=== PATIENT | female | born 1975 | race African-American/Black ===

== ENCOUNTER 2021-05-23 11:28 | Outpatient (REF) | payer OTHER, SELFPAY ==
[2021-05-27 22:02] LABS: HPV mRNA E6/E7 rflx Not Detected (Not Detected)
== END 2021-05-23 11:29 | disposition home or self-care (01) ==
LOC: HO.LAB 11:28
PROVIDERS: PCP Internal Medicine; Visit Provider Advanced Practice Midwife
DX: Z01.411 Encounter for gynecological examination (general) (routine) with abnormal findings (principal); Z11.51 Encounter for screening for human papillomavirus (HPV); N92.0 Excessive and frequent menstruation with regular cycle; N84.1 Polyp of cervix uteri
CPT/HCPCS: 87624; 88142

== ENCOUNTER 2021-07-01 14:44 | Outpatient (REF) | payer OTHER, SELFPAY ==
--- NOTE | ~2021-07-01 | US_ITS ---
EXAMINATION: US PELVIS CLINICAL INFORMATION: Abnormal uterine bleeding. COMPARISON: None TECHNIQUE: Ultrasound of the pelvis is performed using both transabdominal and transvaginal transducers along with Doppler. Transvaginal imaging is performed due to inadequate visualization transabdominally. FINDINGS: The uterus is anteverted and retroflexed and measures 7.5 x 4.6 x 4.9 cm in dimension. No focal uterine lesion is seen. Endometrial thickness is normal measuring 1 cm. There are nabothian cysts in the cervix. The right ovary is normal-appearing and measures 1.9 x 2.1 x 4.6 cm. The left ovary measures 4.4 x 2.7 x 2.6 cm. There is a 2 cm complex cyst in the left ovary with internal echoes. There is no fluid in the pelvis. US/US pelvic and transvaginal IMPRESSION: Normal thickness endometrium. 2 cm complex left ovarian cyst.
== END 2021-07-01 14:45 | disposition home or self-care (01) ==
LOC: HO.US 14:44
PROVIDERS: Visit Provider Advanced Practice Midwife
DX: N92.0 Excessive and frequent menstruation with regular cycle (principal); N84.1 Polyp of cervix uteri
CPT/HCPCS: 76830; 76856

== ENCOUNTER → 2021-07-07 09:52 | Outpatient (BNVA) | payer OTHER, SELFPAY | PROVIDERS: PCP Internal Medicine; Visit Provider Advanced Practice Midwife | DX: Z13.89 Encounter for screening for other disorder (principal) ==

== ENCOUNTER 2021-07-23 13:13 | Outpatient (REF) | payer OTHER, SELFPAY ==
[2021-07-24 13:40] LABS: CT PCR NOT DETECTED (Not Detect.); NG PCR NOT DETECTED (Not Detect.)
[2021-07-25 02:42] LABS: CA 125 New Method 19 U/mL (<35); CA-125 19 U/mL (<35)
== END 2021-07-23 13:14 | disposition home or self-care (01) ==
LOC: HO.LAB 13:13
PROVIDERS: PCP Internal Medicine; Visit Provider Obstetrics & Gynecology
DX: N93.9 Abnormal uterine and vaginal bleeding, unspecified (principal); N83.299 Other ovarian cyst, unspecified side; N84.1 Polyp of cervix uteri
CPT/HCPCS: 36415; 57500; 81025; 86304; 87491; 87591; 88305; 99212

== ENCOUNTER 2021-08-29 13:52 | Outpatient (REF) | payer OTHER, SELFPAY ==
--- NOTE | ~2021-08-29 | MM_ITS ---
EXAMINATION: MM SCREENING DIGITAL BREAST TOMOSYNTHESIS, BILATERAL CLINICAL INFORMATION: Screening. Asymptomatic. The lifetime risk of breast cancer based on the Tyrer-Cuzick Model is 14%. COMPARISON: Mammography: 06/24/2016 TECHNIQUE: Digital breast tomosynthesis is performed in both the craniocaudal and mediolateral oblique views along with computer-aided detection (CAD). Synthesized 2D images are generated from the tomosynthesis. FINDINGS: The breasts are almost entirely fatty (ACR BI-RADS breast composition Category a). There are no significant masses, abnormal calcifications, or other abnormalities. Background stromal markings are stable. No architectural abnormality. The axilla and skin contours are unremarkable. MM/MM tomosynthesis screening BI IMPRESSION: No mammographic evidence of malignancy. ASSESSMENT: BI-RADS 1: Negative RECOMMENDATION: Routine annual mammography screening. This patient's information was entered into a reminder system with a target due date for their next mammogram.
== END 2021-08-29 13:53 | disposition home or self-care (01) ==
LOC: HO.MAMMO 13:52
PROVIDERS: Visit Provider Internal Medicine
DX: Z12.31 Encounter for screening mammogram for malignant neoplasm of breast (principal)
CPT/HCPCS: 77063; 77067

== ENCOUNTER 2021-10-22 10:55 | Outpatient (REF) | payer OTHER, SELFPAY ==
--- NOTE | ~2021-10-22 | US_ITS ---
EXAMINATION: US PELVIS CLINICAL INFORMATION: Other ovarian cyst. COMPARISON: Ultrasound pelvis 07/18/2021 TECHNIQUE: Ultrasound of the pelvis is performed using both transabdominal and transvaginal transducers along with Doppler. Transvaginal imaging is performed due to inadequate visualization transabdominally. FINDINGS: UTERUS: The uterus is anteverted, anteflexed and measures 9.5 cm in length, 4.4 cm in AP and 4.9 cm transverse dimension. The double wall endometrial thickness is 0.9 cm. The uterus is smooth in contour and has normal myometrial echogenicity. No visible fibroid. There are small nabothian cysts seen in the cervix. ADNEXA: Both ovaries are visualized. There is normal color flow to the adnexa. There is no ovarian torsion. There is no pelvic ascites or fluid collection. Right ovary measures 5.4 x 3.5 x 5.1 and volume 15.5 mL. There is a complex cyst with septation measuring 4.8 x 2.9 x 4.3 cm. Slight increased arterial and venous flow. Left ovary is visualized transabdominally and measures 1.9 x 1.0 x 1.1 cm and volume 1.2 mL. It appears unremarkable. Previously it measured 4.4 x 2.7 x 2.6 cm. There is no free fluid in cul-de-sac. US/US pelvic and transvaginal IMPRESSION: Unremarkable uterus. Small nabothian cysts seen in the cervix. Complex cyst right ovary with increased vascularity on Doppler exam. Unremarkable left ovary.
== END 2021-10-22 10:56 | disposition home or self-care (01) ==
LOC: HO.US 10:55
PROVIDERS: Visit Provider Obstetrics & Gynecology
DX: N83.299 Other ovarian cyst, unspecified side (principal)
CPT/HCPCS: 76830; 76856

== ENCOUNTER 2021-12-30 13:06 | Outpatient (REF) | payer OTHER, SELFPAY | END 2021-12-30 13:07 | disposition home or self-care (01) | LOC: HO.LNP 13:06 | PROVIDERS: PCP Internal Medicine; Visit Provider Obstetrics & Gynecology | DX: N93.9 Abnormal uterine and vaginal bleeding, unspecified (principal) | CPT/HCPCS: 58100; 88305 ==

== ENCOUNTER 2022-02-03 10:57 | Outpatient (REF) | payer OTHER, SELFPAY ==
[2022-02-03 11:56] LABS: Hematocrit 35.6 % (37.0-47.0); Hemoglobin 11.2 g/dl (12.0-16.0); Mean Corpuscular HGB Conc 31.5 g/dl (31.0-35.0); Mean Corpuscular Hemoglobin 25.6 pg (27.0-33.0); Mean Corpuscular Volume 81.5 fL (80.0-98.0); Mean Platelet Volume 9.2 fL (9.4-12.3); Platelet Count 262 X10*3/uL (160-400); Red Blood Count 4.37 X10*6/uL (4.20-5.50); Red Cell Distribution Width 16.6 % (11.0-16.0); White Blood Count 7.8 X10*3/uL (4.8-10.8)
[2022-02-03 13:01] LABS: HCG Quantitative < 2 mIU/mL; TSH reflex Free T4 1.14 uIU/mL (0.32-4.0)
[2022-02-04 08:58] LABS: CA-125 20 U/mL (<35)
== END 2022-02-03 10:58 | disposition home or self-care (01) ==
LOC: HO.LAB 10:57
PROVIDERS: PCP Internal Medicine; Visit Provider Obstetrics & Gynecology
DX: N93.9 Abnormal uterine and vaginal bleeding, unspecified (principal); N83.299 Other ovarian cyst, unspecified side
CPT/HCPCS: 36415; 84443; 84702; 85027; 86304; 99212

== ENCOUNTER 2022-12-30 15:53 | Outpatient (REF) | payer OTHER, SELFPAY ==
--- NOTE | ~2022-12-30 | US_ITS ---
EXAMINATION: US PELVIS COMPLETE US PELVIS ENDOVAGINAL CLINICAL INFORMATION: Ovarian cyst COMPARISON: Ultrasound pelvis from 10/22/2021 TECHNIQUE: Transabdominal and transvaginal images of the pelvis were obtained. FINDINGS: UTERUS: Anteverted. Normal size and contour, measuring 8.4 x 4.3 x 4.8 cm (cervix to fundus x AP x transverse). Uniform, homogeneous endometrium measures 0.7 cm in width. RIGHT OVARY: Normal size and echogenicity measures 4.0 x 2.0 x 2.4 cm, volume 10.1 mL. Complex right ovarian cyst with septations and flow measuring 1.8 x 1.5 x 1.6 cm. Additional complex right ovarian cyst measuring 1.7 x 1.3 x 1.5 cm. Suggestion of a right para ovarian cyst measuring 0.8-0 0.8 x 0.7 cm. LEFT OVARY: Normal size and echogenicity measuring 2.2 x 2.4 x 1.5 cm, volume 6.3 mL. FREE FLUID: No pelvic free fluid. US/US pelvic and transvaginal IMPRESSION: 1. Complex right ovarian cyst with septations and flow measuring 1.8 x 1.5 x 1.6 cm. 2. Additional complex right ovarian cyst measuring 1.7 x 1.3 x 1.5 cm. 3. Suggestion of a right para ovarian cyst measuring 0.8-0 0.8 x 0.7 cm.
== END 2022-12-30 15:54 | disposition home or self-care (01) ==
LOC: HO.US 15:53
PROVIDERS: Visit Provider Obstetrics & Gynecology
DX: N83.299 Other ovarian cyst, unspecified side (principal)
CPT/HCPCS: 76830; 76856

== ENCOUNTER 2023-01-05 13:53 | Outpatient (REF) | payer OTHER, SELFPAY ==
[2023-01-05 16:12] LABS: Carcinoembryonic Antigen < 1.73 ng/mL
[2023-01-07 13:33] LABS: CA-125 14 U/mL (<35); Carbohydrate Antigen 19-9 3 U/mL (<34)
== END 2023-01-05 13:54 | disposition home or self-care (01) ==
LOC: HO.LAB 13:53
PROVIDERS: Visit Provider Obstetrics & Gynecology
DX: E28.2 Polycystic ovarian syndrome (principal)
CPT/HCPCS: 36415; 82378; 86301; 86304; 99212

== ENCOUNTER 2023-01-05 13:53 | Outpatient (AMB) | payer OTHER, SELFPAY ==
[2023-01-05 14:25] VITALS: BP 120/82; BMI 45.3
--- NOTE | 2023-01-05 14:25 | A.OFFVIS_ITS ---
Intake Vital Signs 01/05/23 14:25 Height 5 ft 3 in Weight 255 lb 11.779 oz BMI 45.3 BP 120/82 Intake Visit Reasons: complex ovarian cyst Director Educational Radio Required: No Information Interpreted: non-clinical & clinical Accompanied by: Self / Same As Patient Allergies shellfish derived [SHELLFISH DERIVED] Allergy (Intermediate, Verified 01/05/23 14:26) RASH bacitracin [From NEOSPORIN ([id number])] Allergy (Unknown, Verified 01/05/23 14:26) RASH neomycin [From NEOSPORIN ([id number])] Allergy (Unknown, Verified 01/05/23 14:26) RASH polymyxin B [From NEOSPORIN ([id number])] Allergy (Unknown, Verified 01/05/23 14:26) RASH Neosporin Allergy (Unknown, Uncoded 01/05/23 14:26) rash SEAFOOD Allergy (Unknown, Uncoded 01/05/23 14:26) ANAPHYLAXIS shellfish Allergy (Unknown, Uncoded 01/05/23 14:26) anaphylaxis Is last menstrual period known: Yes Last menstrual period: 12/06/22 HPI HPI Comments History of Present Illness Details Presenting for follow-up ultrasound regarding complex ovarian cyst seen on a previous ultrasound few months ago. Recent pelvic ultrasound showed the following: UTERUS: Anteverted. Normal size and contour, measuring 8.4 x 4.3 x 4.8 cm (cervix to fundus x AP x transver se). Uniform, homogeneous endometrium measures 0.7 cm in width. RIGHT OVARY: Normal size and echogenicity measures 4.0 x 2.0 x 2.4 cm, volume 10.1 mL. Complex right ovarian cyst with septations and flow measuring 1.8 x 1.5 x 1.6 cm. Additional complex right ovarian cyst measuring 1.7 x 1.3 x 1.5 cm. Suggestion of a right para ovarian cyst measuring 0.8-0 0.8 x 0.7 cm. LEFT OVARY: Normal size and echogenicity measuring 2.2 x 2.4 x 1.5 cm, volume 6.3 mL. [facility] Medical History PCOS (polycystic ovarian syndrome) Anxiety Depression Social History Alcohol intake: current Alcohol intake frequency: a few times a month Patient Tobacco Use Status: Never used Tobacco Sexual orientation: Lesbian/Valdez/Homosexual Gender identity: Female Female Reproductive History Menstrual Age of Menarche: 10 Date of last menstrual period: 12/06/22 Review of Systems Const All systems reviewed & are unremarkable except as noted in HPI and below Reports as per HPI and Reports no additional complaints GI Reports no additional complaints Reports no additional complaints Physical Exam Vital Signs: Last Vital Signs BP 120/82 01/05/23 14:25 BMI result Body Mass Index 45.3 Assessment & Plan Assessment & Plan (1) Ovarian cyst, complex: Comment: Persistent since 10/21 with additional new right complex cyst Code(s): N83.299 - Other ovarian cyst, unspecified side Plan: Discussed with the patient the persistent complex ovarian cyst by Ultrasound. The differential diagnosis discussed with the patient includes the following but not limited to: benign and malignant gynecological and non-gynecological. Discussed with the patient that per ACOG guidelines, when a patient with a suspicious or persistent complex adnexal mass requires surgical evaluation, a physician trained to appropriately stage and debulk ovarian cancer should perform the operation. Surgical exploration should be performed in a hospital facility that has the necessary support and consultative services to optimize the patient?s outcome. When a malignant ovarian tumor is discovered incidentally, a gynecologic oncologist should be consulted intraoperatively. Recommended CA 19-9, CEA and CA 125 and laparoscopic ovarian cystectomy/possible oophorectomy. Informed the patient that there is no gynecologic oncologist available on staff at [facility] , therefore the patient will be referred to an OBGYN practice at tertiary [facility] where there is immediate access to a gynecologic oncologist intraoperatively in case there was any suspicion or evidence of malignancy. Will refer to OBGYN at [facility]. Asked the patient to call back in case she cannot get in for an appointment at [facility] soon to schedule the procedure at [facility]. The patient verbalized understanding and agreed with the plan. Orders: Orders CA-125 Today N83.299 - Other ovarian cyst, unspecified side Carbohydrate Antigen 19-9 Today N83.299 - Other ovarian cyst, unspecified side Carcinoembryonic Antigen Today N83.299 - Other ovarian cyst, unspecified side Coding Level of Care Code Est Pt Level 3 (06772) Diagnoses Ovarian cyst, complex N83.299
== END 2023-01-05 14:58 | disposition home or self-care (01) ==
LOC: HO.HWS 13:53
PROVIDERS: Visit Provider Obstetrics & Gynecology
DX: N83.299 Other ovarian cyst, unspecified side (principal)
CPT/HCPCS: 99213